=== PATIENT | female | born 1970 ===

== ENCOUNTER → 2018-04-28 09:00 | Outpatient (CLI) | payer OTHER ==
[~2018-04-28 09:00] MED LIST: CIPRO500 MG PO; FARESTON60 MG PO; LOSARTAN-HCTZ1 EACH PO; XARELTO20 MG PO
== END | disposition home or self-care (01) ==
LOC: EKG 09:00 → ADM 10:30 → CIR.AMB 05-04 08:30 → EDSTATUS 05-04 10:30
DX: N87.1 Moderate cervical dysplasia (principal); Z01.810 Encounter for preprocedural cardiovascular examination